=== PATIENT | male | born 1950 | race African-American/Black ===

== ENCOUNTER 2018-11-28 10:53 | Emergency (ER) | payer OTHER, MEDICARE, MEDICAID ==
[~2018-11-28] VITALS: Ht 182.9 cm; Wt 73.5 kg
[2018-11-28] MEDS ORDERED: SODIUM CHLORIDE 0.9% 1,000 ML IV ONE (12:01)
[2018-11-28] MEDS ORDERED: IPRATROPIUM BROMIDE (0.02%) 0.5MG/2.5ML NEB HHN STA (12:01)
[2018-11-28] MEDS ORDERED: ALBUTEROL (0.083%) 2.5MG/3ML NEB HHN STA (12:01)
[2018-11-28 12:58] LABS: BASOPHILS % 0.3 % (0.0-2.0); EOSINOPHILS % 0.6 % (0.0-5.0); HEMATOCRIT. 41.7 % (42.0-52.0); HEMOGLOBIN. 13.8 g/dL (14.0-18.0); MEAN CORPUSCULAR VOLUME 81.5 fL (80.0-94.0); MEAN PLATELET VOLUME 10.2 fl (7.4-10.4); MONOCYTES % 8.9 % (2.0-8.0); NEUTROPHILS % 78.2 % (40.0-76.0); PLATELET 148 x1000/uL (130-400); RED BLOOD CELL COUNT 5.11 mill/uL (4.7-6.1); RED CELL DISTRIBUTION WIDTH 14.7 % (11.6-14.6)
[2018-11-28 13:05] LABS: CHLORIDE 99 mEq/L (98-107)
[2018-11-28 13:06] LABS: PROTHROMBIN TIME 9.8 sec (9.1-11.1)
[2018-11-28 14:45] VITALS: BP 134/81
== END 2018-11-28 15:11 | disposition home or self-care (01) ==
LOC: ER 10:53
DX: J18.9 Pneumonia, unspecified organism (principal); J40 Bronchitis, not specified as acute or chronic; R91.8 Other nonspecific abnormal finding of lung field; F17.210 Nicotine dependence, cigarettes, uncomplicated; Z71.6 Tobacco abuse counseling; J84.9 Interstitial pulmonary disease, unspecified
CPT/HCPCS: 36415; 71045; 80053; 83605; 83690; 83880; 84145; 84484; 85025; 85610; 87040; 93005; 94640; 99284; 99406; J7030; J7611